=== PATIENT | male | born 1955 | race Caucasian/White ===

== ENCOUNTER 2018-10-03 12:18 | Observation (INO) | payer OTHER ==
[~2018-10-03] VITALS: Ht 172.7 cm; Wt 107.0 kg
[2018-10-03] MEDS ORDERED: GLUCOPHAGE500 MG PO (12:31)
[2018-10-03] MEDS ORDERED: LISINOPRIL5 MG PO (12:32)
[2018-10-03] MEDS ORDERED: LIPITOR20 MG PO (12:32)
[2018-10-03] MEDS ORDERED: NEURONTIN600 MG PO (12:32)
[2018-10-03] MEDS ORDERED: BAYER CHEWABLE81 MG PO (12:32)
[2018-10-03] MEDS ORDERED: ULTRAM50 MG PO (12:32)
[2018-10-03] MEDS ORDERED: MULTI-DAY VITAM1 TAB PO (12:33)
[2018-10-03 12:52] LABS: BASOPHILS 0.5 % (0-2); EOSINOPHILS 2.2 % (0-7); HEMATOCRIT 44.8 % (42.0-54.0); HEMOGLOBIN 15.7 g/dL (13.5-17.5); LYMPHOCYTES 23.1 % (15-50); MCV 91.4 fL (80.0-100.0); MEAN PLATELET VOLUME 9.9 fL (7.4-10.4); NEUTROPHILS 67.2 % (40-80); PLATELET COUNT 166 10x3/uL (130-400); RDW 13.7 % (11.5-14.5); WBC 7.8 10x3/uL (4.8-10.8)
[2018-10-03 13:03] LABS: APTT 27.7 SECONDS (22.8-39.4); INR 1.04 (0.85-1.17); PROTIME 13.1 SECONDS (11.6-15.0)
[2018-10-03 13:07] LABS: ALBUMIN 3.8 g/dL (3.4-5.0); ALKALINE PHOSPHATASE 131 U/L (46-116); ALT (SGPT) 42 U/L (10-68); BILIRUBIN - TOTAL 0.41 mg/dL (0.2-1.3); CALC OSMOLALITY 282 mosm/kg (275-300); CALCIUM 8.5 mg/dL (8.5-10.1); CARBON DIOXIDE 29.2 mmol/L (21.0-32.0); CHLORIDE - SERUM 107 mmol/L (98-107); GLUCOSE 99 mg/dL (74-106); POTASSIUM - SERUM 4.1 mmol/L (3.5-5.1); PROTEIN - SERUM 7.1 g/dL (6.4-8.2); SODIUM 142 mmol/L (136-145); UREA NITROGEN 13 mg/dL (7-18); eGFR NON AFRICAN AMERICAN 80 mL/min (90-120)
[2018-10-03 13:19] LABS: CKMB 2.2 U/L (0.0-3.6); CREATINE KINASE 63 UL (21-232); MAGNESIUM - SERUM 1.9 mg/dL (1.8-2.4); TROPONIN-I < 0.017 ng/mL (0.000-0.060)
[2018-10-03 14:00] VITALS: BP 182/95
[2018-10-03 15:00] VITALS: BP 167/89
--- NOTE | 2018-10-03 15:35 | NUR ---
THIS NURSE SPOKE WITH ALTON ARAUJO WITH [facility], WHO STATES THAT PT WOULD NEED TO BED ADMITTED TO [facility] AND THAT [facility] WAS AT MAX. CAPACITY AND UNABLE TO ACCEPT PT AT THIS TIME. EDP NOTIFIED.
[2018-10-03 15:47] VITALS: BP 165/92
[2018-10-03 16:30] VITALS: BP 170/92
--- NOTE | 2018-10-03 17:52 | NUR ---
AWAITING MEAL TRAY BEFORE GIVING ORDERED SLIDING SCALE INSULIN.
--- NOTE | 2018-10-03 18:29 | NUR ---
DIABETIC MEAL TRAY GIVEN TO PATIENT.
--- NOTE | 2018-10-03 20:20 | NUR ---
RECIEVED TO ROOM, ACCOMPANIED BY HOSPITAL STAFF. PT AMBULATED FROM WHEELCHAIR TO BED W/O ISSUE. ALERT AND ORIENTED X 4. DENIES PAIN AT THIS TIME. ANSWERS QUESTIONS APPROPRIATELY. PT PUT ON GOWN. ADMIT VITALS STABLE. IV BAG HUNG AND SET. IV TO RIGHT HAND, PATENT. NO COMPLAINTS OR REQUESTS AT THIS TIME, WILL MONITOR CLOSELY.
[2018-10-03 21:07] VITALS: BP 159/85
--- NOTE | 2018-10-03 21:36 | NUR ---
RESTING IN BED RESP. EVEN AND UNLABORED CALL LIGHT IN REACH NO S/S OF DISTRESS.
[2018-10-03 23:18] VITALS: BP 159/85; Ht 172.7 cm; Wt 107.0 kg
[2018-10-04 04:54] LABS: BASOPHILS 0.3 % (0-2); EOSINOPHILS 2.9 % (0-7); HEMATOCRIT 41.1 % (42.0-54.0); HEMOGLOBIN 14.2 g/dL (13.5-17.5); IMMATURE GRANULOCYTES 0.2 % (0-5); LYMPHOCYTES 29.5 % (15-50); MCH 31.3 pg (26.0-34.0); MCHC 34.5 g/dL (31.0-37.0); MCV 90.5 fL (80.0-100.0); MEAN PLATELET VOLUME 10.4 fL (7.4-10.4); MONOCYTES 6.8 % (2-11); NEUTROPHILS 60.3 % (40-80); PLATELET COUNT 142 10x3/uL (130-400); RBC 4.54 10x6/uL (4.20-6.10); RDW 13.8 % (11.5-14.5); WBC 5.9 10x3/uL (4.8-10.8)
[2018-10-04 04:58] LABS: ALKALINE PHOSPHATASE 107 U/L (46-116); ALT (SGPT) 39 U/L (10-68); BILIRUBIN - TOTAL 0.49 mg/dL (0.2-1.3); CALC OSMOLALITY 284 mosm/kg (275-300); CALCIUM 7.6 mg/dL (8.5-10.1); CARBON DIOXIDE 25.8 mmol/L (21.0-32.0); CHLORIDE - SERUM 109 mmol/L (98-107); CREATININE - SERUM 0.9 mg/dL (0.6-1.3); GLUCOSE 100 mg/dL (74-106); POTASSIUM - SERUM 3.8 mmol/L (3.5-5.1); PROTEIN - SERUM 5.8 g/dL (6.4-8.2); SODIUM 143 mmol/L (136-145); UREA NITROGEN 12 mg/dL (7-18); eGFR NON AFRICAN AMERICAN 90 mL/min (90-120)
[2018-10-04 08:18] VITALS: BP 150/86
[2018-10-04 12:31] VITALS: BP 158/74
[2018-10-04] MEDS ORDERED: LISINOPRIL10 MG PO (14:17)
[2018-10-04 17:18] LABS: APPEARANCE CLEAR (CLEAR); COLOR YELLOW (YELLOW); GLUCOSE NEGATIVE (NEGATIVE); NITRITE NEGATIVE (NEGATIVE); PROTEIN TRACE mg/dL (NEGATIVE); SPECIFIC GRAVITY 1.005 (1.005-1.020); UDS - AMPHET NEGATIVE QUAL (NEGATIVE); UDS - BARB NEGATIVE QUAL (NEGATIVE); UDS - BENZO NEGATIVE QUAL (NEGATIVE); UDS - COCAINE NEGATIVE QUAL (NEGATIVE); UDS - OPIATE NEGATIVE QUAL (NEGATIVE); UDS - PCP NEGATIVE QUAL (NEGATIVE); UDS - THC NEGATIVE QUAL (NEGATIVE)
[2018-10-04 17:19] LABS: BILIRUBIN NEGATIVE (NEGATIVE); KETONE NEGATIVE (NEGATIVE); MUCUS <1+ /lpf (NONE SEEN)
--- NOTE | 2018-10-08 11:46 | EC ---
PATIENT:EMMETT MORENO DATE OF SERVICE: 10/03/18 SEX: M MEDICAL RECORD: [id number] DATE OF : 53 LOCATION:[id number] AGE OF PATIENT: 63 ADMISSION DATE: 10/03/18 REFERRING PHYSICIAN: INTERPRETING PHYSICIAN: RAMY IRAHETA MD ECHOCARDIOGRAM REPORT ECHO CHARGES 4 ECHO COMPLETE Date: 10/04/18 CLINICAL DIAGNOSIS: CVA ECHOCARDIOGRAPHIC MEASUREMENTS (adult normal given) AC root (d.<3.7cm) 3.4 cm LV Septum d (<1.2 cm> 1.5 cm Valve Excursion 1.6 cm LV Septum (systole) 1.6 cm Left Atria (s.<4.0cm> 3.1 cm LVPW d(<1.2cm) 1.6 cm RV (d.<2.3cm) 3.7 cm LVPW (sytole) 1.7 cm LV diastole(<5.6CM) 4.8 cm MV E-F(>70mm/sec) cm LV systole 3.7 cm LVOT Diameter 2.0 cm MV exc.(>10mm) 1.7 cm Est.ejection fraction (50-75%) % DOPPLER: LVIT cm/sec A 84.0 cm/sec E 70.0 cm/sec LA cm/sec RVSP 37 mmHg LVOT 109 cm/sec AOP1/2T m/s Asc. Ao 184 cm/sec RVOT 69 cm/sec RA cm/sec PA 96 cm/sec AV Gradient Peak 13.48mmHg AV Mean 7.59 mmHg AV Area 1.8 cm MV Gradient Peak 5.44 mmHg MV Mean 2.31 mmHg MV Area cm COMMENTS: Technology Lead: Morro RUELAS Sales Order Administrator: 1 Dr. Iraheta TAPE# PACS Pericardial Effusion N DATE OF SERVICE: 10/04/2018 FINDINGS: 1. Left ventricular chamber size is within normal limits. Left ventricular systolic function is normal. Overall ejection fraction estimated at 55% to 60%. 2. Left atrium, right atrium, and right ventricle chamber sizes are within normal limits. 3. Valvular structures have normal structure and motion. 4. Doppler interrogation only reveals mild tricuspid regurgitation, no other valvular insufficiency or stenosis. ECHOCARDIOGRAM REPORT [id number] EMMETT MORENO 5. No evidence of pericardial effusion or left ventricular thrombus. TRANSINT:[id number] Voice Confirmation ID: [id number] DOCUMENT ID: [id number] RAMY IRAHETA MD at 1146 CC: [id number] DICTATION DATE: 10/05/18 1122 [employer]: 10/05/18 1135 DIS IN 10/04/18 [place] [id number] [place] [id number]
== END 2018-10-04 17:31 | disposition home or self-care (01) ==
LOC: D.ER 12:18 → OBSVTIME 16:45 → D.EDHOLD 16:45 → D.MS 16:45
PROVIDERS: Family Medicine; ADMIT Internal Medicine Nephrology
DX: G44.53 Primary thunderclap headache (principal); I10 Essential (primary) hypertension; E11.9 Type 2 diabetes mellitus without complications; J32.9 Chronic sinusitis, unspecified; H53.8 Other visual disturbances